=== PATIENT | male | born 1960 | race Caucasian/White ===

== ENCOUNTER 2023-06-01 23:45 | Inpatient (IN) | payer OTHER ==
[~2023-06-01] VITALS: Ht 165.1 cm; Wt 55.8 kg
[2023-06-02] MEDS ORDERED: HYDROCODONE/APAP 5/325MG TABLET ONE (00:33)
[2023-06-02] MEDS: HYDROCODONE/APAP 5/325MG TABLET PO ONE (00:35)
[2023-06-02 02:04] LABS: BASOPHILS # (AUTO) 0.1 K/uL (0.0-0.2); BASOPHILS % (AUTO) 0.8 % (0.0-2.0); EOSINOPHILS # (AUTO) 0.1 K/uL (0.0-0.7); EOSINOPHILS % (AUTO) 0.8 % (0.0-6.0); HEMATOCRIT 40 % (39-51); HEMOGLOBIN 13.4 g/dL (13.5-17.5); LYMPHOCYTES # (AUTO) 0.5 K/uL (0.8-4.8); LYMPHOCYTES % (AUTO) 3.6 % (20.0-44.0); MEAN CORPUSCULAR HEMOGLOBIN 32 PG (26.0-33.0); MEAN CORPUSCULAR HGB CONC 34 g/dl (31.0-36.0); MEAN CORPUSCULAR VOLUME 94 fL (80-96); MONOCYTES # (AUTO) 0.4 K/uL (0.1-1.30); NEUTROPHILS # (AUTO) 12.8 K/uL (1.8-8.9); NEUTROPHILS % (AUTO) 91.8 % (43.0-81.0); PLATELET COUNT (AUTO) 238 K/uL (150-450); RED BLOOD CELL COUNT(AUTO) 4.26 MIL/uL (4.5-6.0); RED CELL DISTRIBUTION WIDTH 13.1 % (11.5-15.0)
[2023-06-02 02:13] LABS: CALCIUM, SERUM 8.5 mg/dL (8.5-10.1); CREATININE 0.7 mg/dL (0.6-1.3); INR 1.04 (0.91-1.10); PARTIAL THROMBOPLASTIN TIME 24.8 SEC (24.3-34.3); POTASSIUM 3.7 mmol/L (3.5-5.1)
[2023-06-02 04:00] VITALS: BP 115/80; TEMP 98.1; O2SAT 98
[2023-06-02] MEDS ORDERED: MAGNESIUM HYDROXIDE 30 ML UDC PO PRN (04:30)
[2023-06-02] MEDS ORDERED: ONDANSETRON HCL/PF 4 MG/2 ML VIAL IVP PRN (04:30)
[2023-06-02] MEDS ORDERED: METO25TA4 PO (08:02)
[2023-06-02] MEDS ORDERED: LORA10TA7 PO (08:02)
[2023-06-02] MEDS ORDERED: CHOL100043 PO (08:02)
[2023-06-02] MEDS: ACETAMINOPHEN 325 MG TABLET PO PRN (08:04)
[2023-06-02 12:00] VITALS: BP 135/80; TEMP 98.7; O2SAT 98
[2023-06-02 20:00] VITALS: BP 145/91; TEMP 98; O2SAT 97
[2023-06-02] MEDS: HYDROCODONE/APAP 5/325MG TABLET PO PRN (20:34)
[2023-06-03 04:00] VITALS: BP 138/71; TEMP 98.3; O2SAT 96
[2023-06-03] MEDS ORDERED: hydrALAZINE HCL IV 20 MG VIAL IV PRN (09:30)
[2023-06-03] MEDS ORDERED: MORPHINE SULFATE INJ 2 MG/ML DISP.SYRIN IV PRN (09:30)
[2023-06-03 12:00] VITALS: BP 140/77; TEMP 98.6; O2SAT 96
[2023-06-03 16:00] VITALS: BP 143/92; TEMP 98.7; O2SAT 96
[2023-06-03 20:00] VITALS: BP 107/55; TEMP 99; O2SAT 97
[2023-06-04 04:00] VITALS: BP 143/94; TEMP 99.1; O2SAT 98
[2023-06-04 07:22] LABS: BASOPHILS % (AUTO) 0.4 % (0.0-2.0); EOSINOPHILS # (AUTO) 0.1 K/uL (0.0-0.7); EOSINOPHILS % (AUTO) 1.6 % (0.0-6.0); HEMATOCRIT 43 % (39-51); HEMOGLOBIN 14.8 g/dL (13.5-17.5); LYMPHOCYTES # (AUTO) 0.8 K/uL (0.8-4.8); LYMPHOCYTES % (AUTO) 10.4 % (20.0-44.0); MEAN CORPUSCULAR HEMOGLOBIN 32 PG (26.0-33.0); MEAN CORPUSCULAR HGB CONC 35 g/dl (31.0-36.0); MEAN CORPUSCULAR VOLUME 92 fL (80-96); MONOCYTES % (AUTO) 12.1 % (2.0-12.0); NEUTROPHILS # (AUTO) 6.1 K/uL (1.8-8.9); NEUTROPHILS % (AUTO) 75.5 % (43.0-81.0); PLATELET COUNT (AUTO) 225 K/uL (150-450); RED BLOOD CELL COUNT(AUTO) 4.62 MIL/uL (4.5-6.0); WHITE BLOOD COUNT (AUTO) 8.1 K/uL (4.3-11.0)
[2023-06-04 08:00] VITALS: BP 143/85; TEMP 98.5; O2SAT 95
[2023-06-04 08:02] LABS: CALCIUM, SERUM 9.1 mg/dL (8.5-10.1); CREATININE 0.6 mg/dL (0.6-1.3); MAGNESIUM 2.1 mg/dL (1.8-2.4); PHOSPHORUS 3.4 mg/dL (2.5-4.9); POTASSIUM 3.9 mmol/L (3.5-5.1)
[2023-06-04] MEDS: METOPROLOL TARTRATE 25 MG TABLET PO SCH (11:22)
[2023-06-04 16:00] VITALS: BP 161/66; TEMP 97.6; O2SAT 99
[2023-06-05 00:03] VITALS: BP 126/75; TEMP 98.8; O2SAT 100
[2023-06-05 09:02] VITALS: BP 136/92; TEMP 98.7; O2SAT 96
[2023-06-05 16:03] VITALS: BP 137/66; TEMP 97.6; O2SAT 99
[2023-06-05 20:00] VITALS: BP 131/84; TEMP 98.2; O2SAT 96
[2023-06-06] VITALS (25 sets, daily range): BP systolic 101–140; BP diastolic 62–98; TEMP 97.9–98.4; O2SAT 95–100
[2023-06-06 07:19] LABS: BASOPHILS % (AUTO) 0.6 % (0.0-2.0); EOSINOPHILS # (AUTO) 0.3 K/uL (0.0-0.7); EOSINOPHILS % (AUTO) 3.8 % (0.0-6.0); HEMATOCRIT 47 % (39-51); HEMOGLOBIN 16.2 g/dL (13.5-17.5); LYMPHOCYTES # (AUTO) 1.2 K/uL (0.8-4.8); LYMPHOCYTES % (AUTO) 16.1 % (20.0-44.0); MEAN CORPUSCULAR HEMOGLOBIN 32 PG (26.0-33.0); MEAN CORPUSCULAR HGB CONC 35 g/dl (31.0-36.0); MEAN CORPUSCULAR VOLUME 92 fL (80-96); MONOCYTES # (AUTO) 0.9 K/uL (0.1-1.30); MONOCYTES % (AUTO) 11.7 % (2.0-12.0); NEUTROPHILS # (AUTO) 5.1 K/uL (1.8-8.9); NEUTROPHILS % (AUTO) 67.8 % (43.0-81.0); PLATELET COUNT (AUTO) 268 K/uL (150-450); RED BLOOD CELL COUNT(AUTO) 5.07 MIL/uL (4.5-6.0); RED CELL DISTRIBUTION WIDTH 12.9 % (11.5-15.0); WHITE BLOOD COUNT (AUTO) 7.5 K/uL (4.3-11.0)
[2023-06-06 07:48] LABS: ALBUMIN 3.8 g/dL (3.4-5.0); BILIRUBIN,TOTAL 0.9 mg/dL (0.2-1.0); CALCIUM, SERUM 9.8 mg/dL (8.5-10.1); CREATININE 0.7 mg/dL (0.6-1.3); TOTAL PROTEIN, SERUM 7.3 g/dL (6.4-8.2)
[2023-06-06 08:36] LABS: INR 1.03 (0.91-1.10); PROTHROMBIN TIME 10.9 SECS (9.2-11.1)
[2023-06-06] MEDS ORDERED: HEMOSTATIC MATRIX 8 ML 1 EACH PAD MC ONE (09:11)
[2023-06-06] MEDS ORDERED: POLYMYXIN B SULFATE 0 UNITS ONE (09:11)
[2023-06-06] MEDS ORDERED: GELATIN SPONGE,ABSORBABLE 1 EA SPONGE TP ONE (09:11)
[2023-06-06] MEDS ORDERED: CELLULOSE,OXIDIZED 1 EA PACK MC ONE (09:11)
[2023-06-06] MEDS ORDERED: CELLULOSE,OXIDIZED 1 EACH EACH MC ONE (09:12)
[2023-06-06] MEDS ORDERED: LIDOCAINE 1%-EPI 1:100,000 20 ML VIAL ONE (09:12)
[2023-06-06] MEDS ORDERED: BUPIVACAINE 0.5 % PF 150 MG/30 ML VIAL ONE (09:12)
[2023-06-06] MEDS ORDERED: ANESTHESIA TRAY IN PYXIS 1 EA TRAY MC ONE (09:12)
[2023-06-06] MEDS ORDERED: CEFAZOLIN 1 GM ONE (09:12)
[2023-06-06] MEDS ORDERED: GELATIN SPONGE,ABSORBABLE 1 SPONGE SPONGE TP ONE (09:13)
[2023-06-06] MEDS ORDERED: THROMBIN (BOVINE) 5,000 UNITS VIAL TP ONE (09:13)
[2023-06-06] MEDS ORDERED: FENTANYL PF 250MCG/5ML AMPUL ONE (10:07)
[2023-06-06] MEDS ORDERED: ROCURONIUM BROMIDE 50 MG/5 ML ONE (10:07)
[2023-06-06] MEDS ORDERED: IOHEXOL 50 ML IV ONE ×2 (10:21→10:22)
[2023-06-06] MEDS ORDERED: SEVOFLURANE 250 ML BOTTLE IH ONE (11:46)
[2023-06-06] MEDS ORDERED: ESMOLOL IV PRN (13:00)
[2023-06-06] MEDS ORDERED: NS IV PRN (13:00)
[2023-06-06 13:20] LABS: ABG OXYGEN SATURATION 99.6 % (92.0-98.5); ABG PH 7.148 (7.350-7.450); ABG PO2 358.3 mmHg (75.0-100.0); ABG TOTAL HEMOGLOBIN 16.8 G/dL (13.5-18.0); AaDO2 288.7 mmHg; COHb 0.6 % (0.5-1.5); MetHb 0.4 % (0.0-1.5); O2Hb 98.6 % (94.0-97.0); SITE, ABG A-Line; VENT MODE, BG SURGERY VENT @100%
[2023-06-06 13:29] LABS: ABG BASE EXCESS -9.3 mmol/L; ABG OXYGEN SATURATION 99.6 % (92.0-98.5); ABG PCO2 37.7 mmHg (35.0-45.0); ABG PH 7.267 (7.350-7.450); ABG PO2 574.8 mmHg (75.0-100.0); ABG TOTAL HEMOGLOBIN 17.2 G/dL (13.5-18.0); AaDO2 100.5 mmHg; COHb 0.1 % (0.5-1.5); MetHb 0.3 % (0.0-1.5); O2Hb 99.2 % (94.0-97.0); SITE, ABG A-Line; VENT MODE, BG SURGERY VENT 100%
[2023-06-06 13:49] LABS: ABG BASE EXCESS -8.5 mmol/L; ABG PCO2 33.4 mmHg (35.0-45.0); ABG PH 7.313 (7.350-7.450); ABG TOTAL HEMOGLOBIN 15.2 G/dL (13.5-18.0); AaDO2 35.7 mmHg; COHb 0.6 % (0.5-1.5); MetHb 0.1 % (0.0-1.5); O2Hb 92.3 % (94.0-97.0); SITE, ABG A-Line; VENT MODE, BG ROOM AIR
[2023-06-06 15:49] LABS: MAGNESIUM 1.7 mg/dL (1.8-2.4); PHOSPHORUS 3.7 mg/dL (2.5-4.9)
[2023-06-06] MEDS: AMIODARONE 450 MG in IV D5W 241 ML IV PRN (15:57)
[2023-06-06] MEDS: IV D5/0.45 NACL 1,000 ML IV PRN (17:07)
[2023-06-07] VITALS (23 sets, daily range): BP systolic 96–137; BP diastolic 60–91; TEMP 97.8–98.8; O2SAT 94–100
[2023-06-07 03:52] LABS: BASOPHILS # (AUTO) 0.1 K/uL (0.0-0.2); BASOPHILS % (AUTO) 0.7 % (0.0-2.0); EOSINOPHILS # (AUTO) 0.3 K/uL (0.0-0.7); EOSINOPHILS % (AUTO) 4.1 % (0.0-6.0); HEMATOCRIT 37 % (39-51); HEMOGLOBIN 13.1 g/dL (13.5-17.5); LYMPHOCYTES # (AUTO) 1.2 K/uL (0.8-4.8); LYMPHOCYTES % (AUTO) 16.8 % (20.0-44.0); MEAN CORPUSCULAR HEMOGLOBIN 32 PG (26.0-33.0); MEAN CORPUSCULAR HGB CONC 35 g/dl (31.0-36.0); MEAN CORPUSCULAR VOLUME 92 fL (80-96); MONOCYTES # (AUTO) 0.8 K/uL (0.1-1.30); MONOCYTES % (AUTO) 12.1 % (2.0-12.0); NEUTROPHILS # (AUTO) 4.6 K/uL (1.8-8.9); NEUTROPHILS % (AUTO) 66.3 % (43.0-81.0); PLATELET COUNT (AUTO) 239 K/uL (150-450); RED BLOOD CELL COUNT(AUTO) 4.05 MIL/uL (4.5-6.0); RED CELL DISTRIBUTION WIDTH 12.9 % (11.5-15.0); WHITE BLOOD COUNT (AUTO) 6.9 K/uL (4.3-11.0)
[2023-06-07 03:53] LABS: ALBUMIN 3.1 g/dL (3.4-5.0); BILIRUBIN,TOTAL 0.8 mg/dL (0.2-1.0); CALCIUM, SERUM 8.4 mg/dL (8.5-10.1); CREATININE 0.6 mg/dL (0.6-1.3); MAGNESIUM 1.9 mg/dL (1.8-2.4); PHOSPHORUS 4.7 mg/dL (2.5-4.9); POTASSIUM 3.8 mmol/L (3.5-5.1); TOTAL PROTEIN, SERUM 5.8 g/dL (6.4-8.2)
[2023-06-07] MEDS: METOPROLOL TARTRATE 25 MG TABLET PO SCH (08:30)
[2023-06-08] VITALS (18 sets, daily range): BP systolic 91–141; BP diastolic 46–89; TEMP 97.9–98.6; O2SAT 93–100
[2023-06-08] MEDS: IV D5/0.45 NACL 1,000 ML IV PRN ×2 (00:17→18:32)
[2023-06-08 04:23] LABS: BASOPHILS # (AUTO) 0.1 K/uL (0.0-0.2); EOSINOPHILS # (AUTO) 0.3 K/uL (0.0-0.7); EOSINOPHILS % (AUTO) 4.1 % (0.0-6.0); HEMATOCRIT 39 % (39-51); HEMOGLOBIN 13.5 g/dL (13.5-17.5); LYMPHOCYTES % (AUTO) 12.7 % (20.0-44.0); MEAN CORPUSCULAR HEMOGLOBIN 32 PG (26.0-33.0); MEAN CORPUSCULAR HGB CONC 35 g/dl (31.0-36.0); MEAN CORPUSCULAR VOLUME 92 fL (80-96); MONOCYTES % (AUTO) 12.6 % (2.0-12.0); NEUTROPHILS # (AUTO) 5.3 K/uL (1.8-8.9); NEUTROPHILS % (AUTO) 69.6 % (43.0-81.0); PLATELET COUNT (AUTO) 259 K/uL (150-450); RED BLOOD CELL COUNT(AUTO) 4.22 MIL/uL (4.5-6.0); RED CELL DISTRIBUTION WIDTH 12.9 % (11.5-15.0); WHITE BLOOD COUNT (AUTO) 7.6 K/uL (4.3-11.0)
[2023-06-08 04:38] LABS: CALCIUM, SERUM 8.7 mg/dL (8.5-10.1); CREATININE 0.7 mg/dL (0.6-1.3); MAGNESIUM 2.1 mg/dL (1.8-2.4); POTASSIUM 3.8 mmol/L (3.5-5.1)
[2023-06-08] MEDS ORDERED: ANESTHESIA TRAY IN PYXIS 1 EA TRAY MC ONE (07:43)
[2023-06-08] MEDS ORDERED: GELATIN SPONGE,ABSORBABLE 1 EA SPONGE TP ONE (07:44)
[2023-06-08] MEDS ORDERED: THROMBIN (BOVINE) 5,000 UNITS VIAL TP ONE ×3 (07:44→14:27)
[2023-06-08] MEDS ORDERED: GELATIN SPONGE,ABSORBABLE 1 SPONGE SPONGE TP ONE (07:44)
[2023-06-08] MEDS ORDERED: CELLULOSE,OXIDIZED 1 EA PACK MC ONE (07:45)
[2023-06-08] MEDS ORDERED: HEMOSTATIC MATRIX 8 ML 1 EACH PAD MC ONE ×3 (07:45→14:17)
[2023-06-08] MEDS ORDERED: CELLULOSE,OXIDIZED 1 EACH EACH MC ONE (07:45)
[2023-06-08] MEDS ORDERED: CELLULOSE,OXIDIZED 1 PKT EACH MC ONE (07:46)
[2023-06-08] MEDS ORDERED: LIDOCAINE 1%-EPI 1:100,000 20 ML VIAL ONE (07:47)
[2023-06-08] MEDS ORDERED: BUPIVACAINE 0.5 % PF 150 MG/30 ML VIAL ONE (07:47)
[2023-06-08] MEDS ORDERED: CEFAZOLIN 1 GM ONE (07:47)
[2023-06-08] MEDS ORDERED: POLYMYXIN B SULFATE 1,000,000 UNITS ONE (07:48)
[2023-06-08] MEDS ORDERED: LIDOCAINE 5% (PATCH) 1 EA PATCH TP ONE (07:54)
[2023-06-08] MEDS ORDERED: ALBUMIN 5% 500 ML IV ONE (09:38)
[2023-06-08] MEDS ORDERED: Magnesium 1 GM/2 ML VIAL ONE (09:38)
[2023-06-08] MEDS ORDERED: FAMOTIDINE/PF INJ 20 MG/2 ML VIAL IV ONE (09:39)
[2023-06-08] MEDS ORDERED: METOPROLOL TARTRATE INJ 5 MG/5 ML AMPUL ONE (09:39)
[2023-06-08] MEDS ORDERED: ROCURONIUM BROMIDE 50 MG/5 ML ONE (09:39)
[2023-06-08] MEDS ORDERED: FENTANYL PF 100MCG/2ML AMPUL ONE (09:39)
[2023-06-08] MEDS ORDERED: ESMOLOL INJ 100 MG/10 ML VIAL IV ONE (09:39)
[2023-06-08] MEDS ORDERED: KETAMINE HCL (500MG/10ML) 50 MG/ML VIAL ONE (09:40)
[2023-06-08] MEDS ORDERED: HYDROMORPHONE INJ 2 MG/ML DISP.SYRIN ONE (09:40)
[2023-06-08] MEDS ORDERED: LIDOCAINE 2% JEL UROJET 10 ML MM ONE (09:44)
[2023-06-08] MEDS ORDERED: PROPOFOL 20 ML IV ONE (13:28)
[2023-06-08] MEDS ORDERED: PROPOFOL 100 ML ONE (13:33)
[2023-06-08 13:40] LABS: ABG BASE EXCESS -4.1 mmol/L; ABG OXYGEN SATURATION 98.5 % (92.0-98.5); ABG PCO2 37.3 mmHg (35.0-45.0); ABG PH 7.363 (7.350-7.450); ABG PO2 150.8 mmHg (75.0-100.0); ABG TOTAL HEMOGLOBIN 13.9 G/dL (13.5-18.0); AaDO2 136.4 mmHg; COHb 0.3 % (0.5-1.5); O2Hb 98.2 % (94.0-97.0); SITE, ABG A-Line; VENT MODE, BG fio2 45%
[2023-06-08] MEDS ORDERED: IOHEXOL 240MG/ML 50 ML IV ONE (13:57)
[2023-06-08 14:25] LABS: CALCIUM, SERUM 8.1 mg/dL (8.5-10.1); CREATININE 0.7 mg/dL (0.6-1.3); MAGNESIUM 2.9 mg/dL (1.8-2.4); POTASSIUM 4.4 mmol/L (3.5-5.1)
[2023-06-08 15:30] LABS: ABG BASE EXCESS -4.8 mmol/L; ABG OXYGEN SATURATION 98.4 % (92.0-98.5); ABG PCO2 32.9 mmHg (35.0-45.0); ABG PH 7.386 (7.350-7.450); ABG TOTAL HEMOGLOBIN 13.1 G/dL (13.5-18.0); AaDO2 143.4 mmHg; COHb 0.3 % (0.5-1.5); MetHb 0.2 % (0.0-1.5); O2Hb 97.9 % (94.0-97.0); SITE, ABG A-Line; VT, ABG 450 mL
[2023-06-08 16:21] LABS: BASOPHILS # (AUTO) 0.2 K/uL (0.0-0.2); BASOPHILS % (AUTO) 1.4 % (0.0-2.0); EOSINOPHILS # (AUTO) 0.4 K/uL (0.0-0.7); EOSINOPHILS % (AUTO) 3.2 % (0.0-6.0); HEMATOCRIT 35 % (39-51); HEMOGLOBIN 12.1 g/dL (13.5-17.5); LYMPHOCYTES # (AUTO) 1.5 K/uL (0.8-4.8); MEAN CORPUSCULAR HEMOGLOBIN 32 PG (26.0-33.0); MEAN CORPUSCULAR HGB CONC 34 g/dl (31.0-36.0); MEAN CORPUSCULAR VOLUME 93 fL (80-96); MONOCYTES # (AUTO) 1.3 K/uL (0.1-1.30); NEUTROPHILS # (AUTO) 8.3 K/uL (1.8-8.9); NEUTROPHILS % (AUTO) 71.4 % (43.0-81.0); PLATELET COUNT (AUTO) 256 K/uL (150-450); RED CELL DISTRIBUTION WIDTH 12.4 % (11.5-15.0); WHITE BLOOD COUNT (AUTO) 11.6 K/uL (4.3-11.0)
[2023-06-08] MEDS ORDERED: METOCLOPRAMIDE HCL 10 MG/2 ML VIAL IV PRN (17:30)
[2023-06-08] MEDS: LIDOCAINE 5% (PATCH) 1 EA PATCH TP SCH (18:30)
[2023-06-08] MEDS: VANCOMYCIN 1 GM in IV D5W 250ml IV SCH (18:32)
[2023-06-08] MEDS: HYDROMORPHONE 1 MG/1 ML DISP.SYRIN IV PRN (18:53)
[2023-06-08] MEDS ORDERED: NOREPINEPHRINE 8 MG in IV D5W 242 ML IV PRN (19:30)
[2023-06-08] MEDS: PIPERACILLIN /TAZOBACTAM 3.375 G in IV D5W 100 ML IV SCH (21:22)
[2023-06-09] VITALS (17 sets, daily range): BP systolic 91–116; BP diastolic 52–80; TEMP 98–98.8; O2SAT 90–100
[2023-06-09] MEDS: HYDROMORPHONE 1 MG/1 ML DISP.SYRIN IV PRN (01:49)
[2023-06-09 05:09] LABS: BASOPHILS % (AUTO) 0.4 % (0.0-2.0); EOSINOPHILS # (AUTO) 0.5 K/uL (0.0-0.7); EOSINOPHILS % (AUTO) 5.5 % (0.0-6.0); HEMATOCRIT 27 % (39-51); HEMOGLOBIN 9.5 g/dL (13.5-17.5); LYMPHOCYTES # (AUTO) 0.4 K/uL (0.8-4.8); MEAN CORPUSCULAR HEMOGLOBIN 32 PG (26.0-33.0); MEAN CORPUSCULAR HGB CONC 35 g/dl (31.0-36.0); MEAN CORPUSCULAR VOLUME 92 fL (80-96); MONOCYTES # (AUTO) 0.8 K/uL (0.1-1.30); MONOCYTES % (AUTO) 8.7 % (2.0-12.0); NEUTROPHILS # (AUTO) 7.2 K/uL (1.8-8.9); NEUTROPHILS % (AUTO) 80.4 % (43.0-81.0); PLATELET COUNT (AUTO) 214 K/uL (150-450); RED BLOOD CELL COUNT(AUTO) 2.94 MIL/uL (4.5-6.0); RED CELL DISTRIBUTION WIDTH 12.6 % (11.5-15.0); WHITE BLOOD COUNT (AUTO) 8.9 K/uL (4.3-11.0)
[2023-06-09 05:18] LABS: CALCIUM, SERUM 8.4 mg/dL (8.5-10.1); CREATININE 0.7 mg/dL (0.6-1.3); POTASSIUM 4.3 mmol/L (3.5-5.1)
[2023-06-09] MEDS: IV NS 0.9% 1,000 ML IV PRN (10:00)
[2023-06-09] MEDS: CHOLECALCIFEROL 1,000 UNIT TABLET (VIT D3) PO SCH (14:00)
[2023-06-09 17:54] LABS: URINE SODIUM, RANDOM 112 mmol/l (40-220)
[2023-06-10 00:26] VITALS: BP 111/75; TEMP 98.4; O2SAT 98
[2023-06-10 05:15] VITALS: BP 130/74; TEMP 99.3; O2SAT 99
[2023-06-10 07:00] VITALS: BP 117/77; TEMP 98.4; O2SAT 94
[2023-06-10 08:11] LABS: CALCIUM, SERUM 8.4 mg/dL (8.5-10.1); CREATININE 0.6 mg/dL (0.6-1.3); POTASSIUM 3.4 mmol/L (3.5-5.1)
[2023-06-10] MEDS: LORATADINE 10 MG TABLET PO SCH (09:08)
[2023-06-10] MEDS: POTASSIUM CHLORIDE 20 MEQ POWDER PACKET PO ONE (11:44)
[2023-06-10 16:00] VITALS: BP 110/81; TEMP 98.8; O2SAT 95
[2023-06-10 20:00] VITALS: BP 103/67; TEMP 98.8; O2SAT 95
[2023-06-11 20:00] VITALS: BP 119/72; TEMP 98.8; O2SAT 95
[2023-06-11 23:44] LABS: OSMOLALITY,URINE 635 mOS/kg (340-1090)
[2023-06-12] MEDS: ALPRAZOLAM 0.5 MG TABLET PO PRN (03:00)
[2023-06-12] MEDS: POTASSIUM CHLORIDE 20 MEQ TAB.PRT.SR PO ONE (11:08)
[2023-06-12 16:00] VITALS: BP 110/70; TEMP 99; O2SAT 96
[2023-06-12 20:54] VITALS: BP 110/64; TEMP 98.4; O2SAT 94
[2023-06-13 07:30] VITALS: BP 128/75; TEMP 98.8; O2SAT 96
[2023-06-13 16:00] VITALS: BP 119/81; TEMP 97.3; O2SAT 96
[2023-06-14 08:20] VITALS: BP 110/67; TEMP 98.4; O2SAT 97
[2023-06-14 16:06] VITALS: BP 108/70; TEMP 98.8; O2SAT 97
[2023-06-14 16:59] LABS: BASOPHILS # (AUTO) 0.1 K/uL (0.0-0.2); BASOPHILS % (AUTO) 0.9 % (0.0-2.0); EOSINOPHILS # (AUTO) 0.3 K/uL (0.0-0.7); HEMATOCRIT 26 % (39-51); HEMOGLOBIN 9.1 g/dL (13.5-17.5); LYMPHOCYTES # (AUTO) 1.2 K/uL (0.8-4.8); LYMPHOCYTES % (AUTO) 16.2 % (20.0-44.0); MEAN CORPUSCULAR HEMOGLOBIN 32 PG (26.0-33.0); MEAN CORPUSCULAR HGB CONC 35 g/dl (31.0-36.0); MEAN CORPUSCULAR VOLUME 92 fL (80-96); MONOCYTES % (AUTO) 12.7 % (2.0-12.0); NEUTROPHILS # (AUTO) 5.1 K/uL (1.8-8.9); NEUTROPHILS % (AUTO) 66.2 % (43.0-81.0); PLATELET COUNT (AUTO) 420 K/uL (150-450); RED BLOOD CELL COUNT(AUTO) 2.82 MIL/uL (4.5-6.0); RED CELL DISTRIBUTION WIDTH 12.7 % (11.5-15.0); WHITE BLOOD COUNT (AUTO) 7.6 K/uL (4.3-11.0)
[2023-06-14 17:08] LABS: CALCIUM, SERUM 8.8 mg/dL (8.5-10.1); CREATININE 0.6 mg/dL (0.6-1.3); POTASSIUM 4.1 mmol/L (3.5-5.1)
[2023-06-14 17:14] LABS: ALBUMIN 2.9 g/dL (3.4-5.0); BILIRUBIN,TOTAL 0.3 mg/dL (0.2-1.0); TOTAL PROTEIN, SERUM 5.9 g/dL (6.4-8.2)
[2023-06-14 21:00] VITALS: BP 98/72; TEMP 99; O2SAT 95
[2023-06-15 08:27] VITALS: BP 105/73; TEMP 98.2; O2SAT 99
[2023-06-15] MEDS ORDERED: HYDR-3976 PO (12:22)
== END 2023-06-15 14:45 | disposition home health service (06) | DRG 457 ==
LOC: ER 23:58 → MEDSG1 06-02 02:58 → ICU 06-06 13:19 → TELE 06-09 15:03 → MED 06-10 09:21
PROVIDERS: ADMIT Internal Medicine; ATTEND Nurse Practitioner Acute Care
PROC: 0RG70J1 Fusion of 2 to 7 Thoracic Vertebral Joints with Synthetic Substitute, Posterior Approach, Posterior Column, Open Approach (ICD-10-PCS; principal; 2023-06-08)
PROC: 0PS43ZZ Reposition Thoracic Vertebra, Percutaneous Approach (ICD-10-PCS; 2023-06-08)
PROC: 0PU43JZ Supplement Thoracic Vertebra with Synthetic Substitute, Percutaneous Approach (ICD-10-PCS; 2023-06-08)
PROC: 00NX0ZZ Release Thoracic Spinal Cord, Open Approach (ICD-10-PCS; 2023-06-08)
DX: M48.54XA Collapsed vertebra, not elsewhere classified, thoracic region, initial encounter for fracture (principal); D62 Acute posthemorrhagic anemia; E87.1 Hypo-osmolality and hyponatremia; V89.2XXA Person injured in unspecified motor-vehicle accident, traffic, initial encounter; Y92.410 Unspecified street and highway as the place of occurrence of the external cause; Z98.1 Arthrodesis status; M41.9 Scoliosis, unspecified; Q76.49 Other congenital malformations of spine, not associated with scoliosis; Z87.74 Personal history of (corrected) congenital malformations of heart and circulatory system; Z87.891 Personal history of nicotine dependence; Z79.899 Other long term (current) drug therapy; D72.829 Elevated white blood cell count, unspecified; Z86.79 Personal history of other diseases of the circulatory system; E86.1 Hypovolemia; I10 Essential (primary) hypertension; I48.91 Unspecified atrial fibrillation
CPT/HCPCS: 36415; 36600; 70450-TC; 71045-TC; 71250-TC; 72070-TC; 72074-TC; 72125-TC; 72128-TC; 72131-TC; 72146-TC; 80048-TC; 80053-TC; 82803-TC; 83735-TC; 83935-TC; 84100-TC; 84300-TC; 84484-TC; 85025-TC; 85610-TC; 85730-TC; 86850-TC; 93307-TC; 97110-TC; 97112-TC; 97116-TC; 97530-TC; 97535-TC; A4216; A4223; A6253; A6402; C1751; G0378; J0282; J0330; J0690; J1170; J2405; J2543; J2704; J2765; J3010; J3370; J3475; J3490; J7030; J7040; J7050; J7060; P9045; Q9966; Q9967